=== PATIENT | female | born 1955 | race Caucasian/White ===

== ENCOUNTER 2019-01-21 16:04 | Emergency (ER) | payer BC ==
--- OUTSIDE RECORDS SUMMARY | 2019-01-21 16:31 | XMS REPORT | Continuity of Care Document ---
:1955 External Reference #:[id number] Author Name Shelli Denise Care Team Providers Name Role Phone Von Oliveros MD Primary Care Physician Unavailable Payers Date Identification Numbers Payment Provider Subscriber Policy Number: [id number] [facility] Mariangel Ovalle PayID: [id number] [address] [place] [address] Advance Directives Description No Information Available Problems Description No Information Family History Date Family Member(s) Observation Comments Father MVA Father due to Accidental () Mother Diabetes Mother due to Stroke () Mother Parkinson's Disease Mother Stroke First Daughter No Current Problems Siblings 3 2 UT, 1 cancer First Brother Bladder Cancer , declined treatment Paternal Grandfather Heart Disease Paternal Grandmother Stroke Maternal Grandfather Diabetes Maternal Grandfather MVA Maternal Grandmother Heart Disease Social History Type Date Description Comments Sex Unknown Marital Status Lives With Alone Occupation [employer] Tobacco Use Start: Unknown Never Smoked Cigarettes Smoking Status Reviewed: 01/02/19 Never Smoked Cigarettes ETOH Use Drinks Alcoholic Beverages Rarely Tobacco Use Start: Unknown Patient has never smoked Recreational Drug Use Denies Drug Use Exercise Type/Frequency Exercises sporadically Allergies, Adverse Reactions, Alerts Date Description Reaction Status Severity Comments 10/05/2018 Sulfa Antibiotics Active Medications Medication Date Status Form Strength Qnty SIG Indications Ordering Provider Estradiol 10/05/ Active Tablets 10mcg 24tabs vaginally N95.0 Dvorah 2019 2x/week MD Juaquin Triamterene/Hy / Active Capsules 37.5-25mg 1 by mouth Unknown drochlorothiaz 0000 every day alison One Daily / Active Tablets 1 PO qd Unknown Multivitamin 0000 Women Vitamin D / Active Capsules 2000Unit 1 by mouth Unknown (Ergocalcifero 0000 every day l) [facility] Cod Liver 00// Active Capsules 1 PO qd Unknown Oil 0000 Cinnamon / Active Capsules 500mg 1 tabs by Unknown 0000 mouth every day Hair Skin & / Active Chewtabs 1250-7.5-7 1 by mouth Unknown Nails Gummies 0000 .5mcg-mg-U every day nt Metoprolol / Active Tablets ER 25mg 1/2 by Unknown Succinate ER 0000 24HR mouth every day [place] 3-6-9 00/ Active Capsules 1200mg 1 by mouth Unknown 0000 every day Aspirin 81 Low 00/ Active Chewtabs 81mg 90unit 1 by mouth Qutaybeh Dose 0000 s every day Gloria Aleman M.D. Bupropion HCL 10/05/ Hx Tablets ER 150mg 60tabs one tablet Dvorah ER (Smoking 2019 - 12HR once daily [place], Det) 3 days MD 2018 and then one tablet twice daily Cinnamon / Hx Tablets 500mg 1 PO qd Unknown 0000 - 2018 Glucosamine / Hx Capsules 1500Com 1 by mouth Unknown Chondroitin 0000 - twice a day 1500 Complex 2018 Co Q-10 / Hx Capsules 200mg 1 by mouth Unknown 0000 - every day 2018 Immunizations Description No Information Available Vital Signs Date Vital Result Comment 01/02/2019 1:14pm Height 61 inches 5'1" Weight 194.00 lb with shoes/clothes Heart Rate 80 /min Radial BP Systolic Sitting 152 mmHg Lue reg cuff BP Diastolic Sitting 78 mmHg Lue reg cuff BP Systolic Standing 152 mmHg Lue reg cuff BP Diastolic Standing 78 mmHg Lue reg cuff BMI (Body Mass Index) 36.7 kg/m2 Ejection Fraction REF 55% Stress Echo 12/26/2018 12/07/2018 8:50am Height 61 inches 5'1" Weight 191.00 lb with boots Heart Rate 82 /min BP Systolic Sitting 142 mmHg BP Diastolic Sitting 80 mmHg BP Systolic Standing 144 mmHg BP Diastolic Standing 84 mmHg BMI (Body Mass Index) 36.1 kg/m2 Ejection Fraction 60-65% 12/01/18 11/30/2018 8:31am Height 61 inches 5'1" Heart Rate 86 /min BP Systolic 158 mmHg BP Diastolic 79 mmHg O2 % BldC Oximetry 96 % Last Menstrual Period [id number] 10/05/2018 10:55am Height 61 inches 5'1" Weight 192.50 lb Heart Rate 85 /min BP Systolic 159 mmHg BP Diastolic 77 mmHg O2 % BldC Oximetry 97 % BMI (Body Mass Index) 36.4 kg/m2 Last Menstrual Period [id number] Results Test Date Facility Test Result H/L Range Note Lipid Panel - [facility] 12/20/2018 [facility] Creatine 71 U/L N 10- [address] Kinase(CK) [place] [address] [phone] Comp Metabolic 12/20/2018 [facility] Albumin 4.4 g/dL N 3.2- 5.[address] [place] [address] [phone] Sodium 143 mmol/L N 135-145 Potassium 3.7 mmol/L N 3.5-5.0 Chloride 105 mmol/L N 101-111 Co2 Carbon Dioxide 31 mmol/L N 22-32 Anion Gap 7 mmol/L N 2-11 Calcium 9.0 mg/dL N 8.6-10.3 Total Bilirubin 0.50 mg/dL N 0.2-1.0 Total Protein 6.2 g/dL Low 6.4-8.9 Globulin 1.8 g/dL Low 2-4 Albumin/Globulin Ratio 2.4 N 1-3 Glucose 109 mg/dL High 70-100 Blood Urea Nitrogen 14 mg/dL N 6-24 Creatinine 0.58 mg/dL N 0.51-0.95 BUN/Creatinine Ratio 24.1 High 8-20 Alkaline Phosphatase 78 U/L N 34-104 Alt 26 U/L N 7-52 Ast 18 U/L N 13-39 Egfr Non- 105.0 >60 Egfr 127.0 >60 2 Lipid Profile 12/20/2018 [facility] Triglycerides 164 mg/dL 3 (Trig/Chol/HDL) [address] [place] [address] [phone] Cholesterol 152 mg/dL 4 HDL Cholesterol 35.1 mg/dL 5 LDL Cholesterol 84 mg/dL 6 Laboratory test 11/30/2018 [facility] Gardnerella/Yeast: SEE RESULT [address] [place] [address] [phone] Urine Culture And 10/05/2018 [facility] Urine Culture SEE RESULT [address] [place] [address] [phone] Urinalysis Profile 10/05/2018 [facility] Urine Color Straw [address] [place] [address] [phone] Urine Appearance Clear Urine Specific [address] 1.010 N 1.010-1.030 Urine pH 8.0 N 5-9 Urine Urobilinogen Negative Negative Urine Ketones Negative Negative Urine Protein Negative Negative Urine Leukocytes Trace Abnormal Negative Urine Blood 1+ Abnormal Negative Urine Nitrite Negative Negative Urine Bilirubin Negative Negative Urine Glucose Negative Negative Urine White Blood Cell Trace(0-5/hpf) Absent Urine Red Blood Cell Trace(0-2/hpf) Absent Urine Bacteria Absent Absent Urine Squamous Epithelial Cell Present Abnormal Absent 1 fasting 2 Because ethnic data is not always readily available, this report includes an eGFR for both -Americans and non- Americans. The National Kidney Disease Education Program (NKDEP) does not endorse the use of the MDRD equation for patients that are not between the ages of 18 and 70, are , have extremes of body size, muscle mass, or nutritional status, or are non- or non-. According to the National Kidney Foundation, irrespective of diagnosis, the stage of the disease is based on the level of kidney function: Stage Description GFR(mL/min/1.73 m(2)) 1 Kidney damage with normal or decreased GFR 90 2 Kidney damage with mild decrease in GFR 60-89 3 Moderate decrease in GFR 30-59 4 Severe decrease in GFR 15-29 5 Kidney failure <15 (or dialysis) 3 Desirable: <150 Borderline High: 150-199 High: 200-499 Very High: >500 4 Desirable: <200 Borderline High: 200-239 High: >239 5 Low: <40 Desirable: 40-60 High: >60 6 Desirable: <100 Near Optimal: 100-129 Borderline High: 130-159 High: 160-189 Very High: >189 7 SEE RESULT BELOW Name: MARIANGEL OVALLE : [address]: Terry Reza MD Acct: [id number] Unit: [id number] AGE: 63 Location: [facility] Re11/30/18 SEX: F Status: REG REF SPEC: [id number] MARISSA: 11/30/[address] [facility] [address]: Terry Reza MD REQ: [id number] RECD: 11/30/18 STATUS: COMP _ SOURCE: VAGINAL SPDESC: ORDERED: Vidya,Yeast DNA COMMENTS: [id number] Would you like to order Trichomonas Vaginalis testing? No Procedure Result Reported Site Gardnerella/Yeast: Vaginal DNA Final 12/01/18- 1249 ML Organism 1 Negative Aruna Organism 2 Negative Gardnerella The presence of G. vaginalis, although suggestive, is not diagnostic for bacterial vaginosis. Results should be interpreted in conjuction with other clinical and laboratory data available. Women with vaginal discharge should be evaluated for risk factors of cervicitis and pelvic inflammatory disease, toxic shock syndrome (S.aureus), and if present, evaluated for organisms not included in this assay such as N. gonorrhoeae, C. trachomatis, Mobiluncus, Mycoplasma and/or Prevotella. Mixed infections may occur. The performance of this test on patient specimens collected during or immediately after antimicrobial therapy is unknown. The presence or absence of Aruna species, or G. vaginalis cannot be used as a test for therapeutic success or failure. * ML - Main Lab . END OF REPORT DEPARTMENT OF PATHOLOGY, [address] [place] [address] Jairo Russ M.D. Director [facility] # [id number] SEE RESULT BELOW Name: MARIANGEL OVALLE : [address]: Terry Reza MD Acct: [id number] Unit: [id number] AGE: 63 Location: [facility] Re10/05/18 SEX: F Status: REG REF SPEC: [id number] MARISSA: 10/05/18-[address]: Terry Reza MD REQ: [id number] RECD: 10/05/18 STATUS: COMP _ [facility] ORDERED: Urine Culture COMMENTS: [id number] Urine Source: Random Procedure Result Reported Site Urine Culture Final 10/06/18- 1235 ML No growth of clinically significant organisms * ML - Main Lab . END OF REPORT DEPARTMENT OF PATHOLOGY, [address] [place] [address] Jairo Russ M.D. Director [facility] # [id number] Procedures Date Code Description Status 12/29/2018 97180 Holter Monitor Review (24 hr)dr review & interp only Completed 12/28/2018 68706 ECG Monitor/Recording W/Visual Superimposition Scanning Completed 12/26/2018 34371 ECHO Stress Test Incl Perf Contiuous ekg Monitoring Completed W/Phys Superv 12/07/2018 75534 EKG Tracing & Interpretation Completed 12/01/2018 53673 ECHO Transthorasic Realtime 2D W Doppler & Color Flow Completed Hosp 10/11/2018 [id number] Mammogram Completed 10/16/2015 [id number] Mammogram Completed Encounters Type Date Location Provider Dx Diagnosis Office Visit 12/07/2018 [facility] Qutaybeh S. R07.9 Chest pain, 9:00a Austin Aleman unspecified R06.02 Shortness of breath R00.2 Palpitations I10 Essential (primary) hypertension E78.5 Hyperlipidemia, unspecified E66.9 Obesity, unspecified Z82.49 Family hx of ischem heart dis and oth dis of the circ sys Office Visit 12/02/2018 11:01a [facility] R07.9 Chest pain, Assoc,cassi Denny NP unspecified Hospitalists I10 Essential (primary) hypertension Office Visit 12/01/2018 1:18p [facility] Qutaybeh S. R07.89 Other chest Austin Aleman pain R79.89 Other specified abnormal findings of blood chemistry I10 Essential (primary) hypertension E78.5 Hyperlipidemia, unspecified R94.31 Abnormal electrocardiogram [ECG] [EKG] Z82.49 Family hx of ischem heart dis and oth dis of the [facility] E66.9 Obesity, unspecified [facility]9 Chest pain, 11:01a Assoccassi M.D. unspecified Hospitalists I10 Essential (primary) hypertension Office Visit 11/30/2018 8:30a [facility] Terry Reza, N95.0 [facility] bleeding N95.2 Postmenopausal atrophic vaginitis Z90.710 Acquired absence of both cervix and uterus Office Visit 10/05/2018 11:00a [facility] Terry Reza N95.0 [facility] bleeding R39.15 Urgency of urination Z80.52 Family history of malignant neoplasm of bladder Plan of Treatment Future Appointment(s):10/11/2019 1:00 pm - Terry Reza MD at [facility]01/02/2019 - Jose A Aleman M.D.I49.1 Atrial premature depolarizationFollow up:one yr ovR07.9 Chest pain, [id number] Essential ( primary) kfivfzbuugsbZ44.9 Obesity, unspecified
--- NOTE | 2019-01-21 16:49 | UC ---
Skin Complaint HPI - HPI Summary HPI Summary: 63 yo female presents with right sided scalp tenderness/burning since yesterday. She tells me that she had shingles a few years ago on her right neck and this sensation on her scalp feels similar. Has not noticed any rashes, lesions, or bumps. Has been feeling well otherwise and denies headache, dizziness, or recent illness. - History of Current Complaint Chief Complaint: UCSkin Time Seen by Provider: 01/21/19 16:28 Stated Complaint: RASH Hx Obtained From: Patient Onset/Duration: Sudden Onset Onset Severity: Mild Current Severity: Mild Pain Intensity: 3 Pain Scale Used: 0-10 Numeric - Allergy/Home Medications Allergies/Adverse Reactions: Allergies Allergy/AdvReac Type Severity Reaction Status Date / Time latex Allergy Rash Verified 01/21/19 16:36 sulfamethoxazole Allergy Hives Verified 01/21/19 16:36 [From Bactrim] trimethoprim [From Bactrim] Allergy Hives Verified 01/21/19 16:36 PMH/Surg Hx/FS Hx/Imm Hx Cardiovascular History: Hypertension - Surgical History Surgical History: Yes Surgery Procedure, Year, and Place: 3 c-sections ;, [facility]. right side carpal tunnel, [facility]. tubal ligation, [facility]. 2 D & C's, [facility], MOST RECENT ONE 2012 - Family History Known Family History: Positive: Cardiac Disease, Hypertension Negative: Diabetes - Social History Lives: With Family Alcohol Use: None Alcohol Amount: 1 GLASS WINE Substance Use Type: None Smoking Status (MU): Never Smoked Tobacco Review of Systems All Other Systems Reviewed And Are Negative: Yes Constitutional: Positive: Negative Skin: Positive: Other - Scalp tenderness Eyes: Positive: Negative ENT: Positive: Negative Respiratory: Positive: Negative Cardiovascular: Positive: Negative Neurological: Positive: Negative Psychological: Positive: Negative Physical Exam - Summary Physical Exam Summary: GENERAL: NAD. WDWN. No pain distress. SKIN: TTP on right frontal and parietal scalp. No erythema, lesions, or wounds. NECK: Supple. Nontender. No lymphadenopathy. CHEST: No accessory muscle use. Breathing comfortably and in no distress. CV: Pulses intact. Cap refill <2seconds NEURO: Alert. PSYCH: Age appropriate behavior. Triage Information Reviewed: Yes Vital Signs: Initial Vital Signs Temp 98.1 F 01/21/19 16:29 Pulse 99 01/21/19 16:29 Resp 16 01/21/19 16:29 Pulse Ox 97 01/21/19 16:29 Vital Signs Reviewed: Yes Course/Dx - Course Course Of Treatment: Given that she has had shingles in the past and this feels similar and could be consistent with a prodrome, will start her with valacyclovir and have her monitor her symptoms - be rechecked if symptoms change or worsen - Diagnoses Provider Diagnosis: Scalp tenderness Discharge - Sign-Out/Discharge Documenting (check all that apply): Patient Departure All imaging exams completed and their final reports reviewed: No Studies - Discharge Plan Condition: Stable Disposition: HOME Prescriptions: Valacyclovir HCl [Valacyclovir] 1,000 mg PO TID #21 tab Patient Education Materials: Shingles (ED) Referrals: Von Oliveros MD [Primary Care Provider] - Additional Instructions: If you develop a fever, shortness of breath, chest pain, new or worsening symptoms - please call your PCP or go to the ED. - Billing Disposition and Condition Condition: STABLE Disposition: Home
== END 2019-01-21 16:55 | disposition home or self-care (01) ==
LOC: UCEAST 16:04
DX: L98.9 Disorder of the skin and subcutaneous tissue, unspecified (principal); I10 Essential (primary) hypertension; Z88.2 Allergy status to sulfonamides; Z91.040 Latex allergy status
CPT/HCPCS: 99212; G0463

== ENCOUNTER 2019-07-24 09:38 | Day surgery (SDC) | payer BC ==
--- NOTE | 2019-07-18 11:09 | HP ---
AMENDED REPORT NOW INCLUDES DESIGNATED COSIGNER PREOPERATIVE HISTORY AND PHYSICAL: DATE OF SURGERY/ADMISSION: 07/24/19 DATE OF OFFICE VISIT/ENCOUNTER: 07/11/19 ATTENDING SURGEON: Zulema Martins MD * (DICTATED BY MADIE MUNOZ) PROCEDURE: Excision mass, left thumb. LINUX SYSTEMS ENGINEER: Dr. Aleman. HISTORY OF PRESENT ILLNESS: This is a 63-year-old female who complains of a large lump on the dorsal aspect of her left thumb. It has been present over a year and has gradually gotten bigger. It is not especially painful unless she hits it on something. She has never had any drainage from the mass. There was no specific injury. It has become bothersome enough that she would like to have it removed. The patient has had a history of atypical chest pain and we will plan on getting clearance from her network firewall engineer, Dr. Aleman, prior to proceeding with surgery. PAST MEDICAL HISTORY: 1. Hypertension. 2. History of DVT, distant history. 3. Lymphedema. 4. History of atrial premature depolarization. 5. History of atypical chest pain. PAST SURGICAL HISTORY: 1. Bilateral cataract removal. 2. Hysterectomy. 3. D and C x3. 4. Right carpal tunnel release. 5. x3. MEDICATIONS: 1. Essential omega-3 fatty acid 1 capsule daily. 2. CBD oil half drop or twice daily. 3. [facility] Cod Liver Oil 1 daily. 4. Cinnamon 500 mg 1 tab daily. 5. Estradiol 10 mcg vaginally 2 times a week. 6. Hair, Skin, Nails Biotin 1 capsule daily. 7. Metoprolol succinate ER 25 mg half a tab daily. 8. [place] 3-6-9 1200 mg 1 tab daily. 9. Multivitamin daily. 10. Triamterene/hydrochlorothiazide 37.5/25 mg daily. 11. Vitamin D 2000 units daily. ALLERGIES: SULFA ANTIBIOTICS cause hives. FAMILY MEDICAL HISTORY: Coronary artery disease, diabetes, Parkinson's, stroke. SOCIAL HISTORY: The patient is retired. 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 She denies tobacco use and recreational drug use. She drinks alcohol on rare occasion. REVIEW OF SYSTEMS: Negative for general, cephalic, cardiovascular, respiratory , GI, , other musculoskeletal, integumentary, endocrine, neurologic, and hematologic symptoms. Infectious Disease: Negative for MRSA, hepatitis C, HIV. PHYSICAL EXAMINATION GENERAL: Well-developed, well-nourished 63-year-old female, in no acute distress. VITAL SIGNS: Height 5 feet and one-half inch, weight 202 pounds, pulse rate 76 , blood pressure 126/64. HEENT: Normocephalic and atraumatic. Pupils are equal, round, and reactive to light and accommodation. Extraocular movements are intact. Throat is clear. NECK: Supple. No palpable lymph nodes. PULMONARY: Lungs are clear to auscultation bilaterally. No wheezes, rales, or rhonchi. CARDIOVASCULAR: Regular rate and rhythm. S1 and S2. No murmurs, rubs, or gallops. Edema is present in right leg secondary to lymphedema. ABDOMEN: Positive bowel sounds. Soft and nontender. MUSCULOSKELETAL: On exam of her left thumb, there is a large ganglion at the IP joint. There are no changes in the finger nail. She can flex and extend the thumb actively. There is minimal tenderness to palpation. Skin is intact. Neurovascular function is intact. NEUROLOGIC: Alert and oriented x3. Cranial nerves II through XII are intact. Sensation is intact to light touch. 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 IMPRESSION: Left thumb ganglion cyst/mucous cyst. PLAN/RECOMMENDATIONS: The patient is scheduled to undergo an excision mass, left thumb, with Dr. Martins on 07/24/19. She will return to the office 10 days postop for followup and suture removal. A prescription for tramadol was e-scribed to the patient's pharmacy for postoperative pain management. We will receive clearance from her network firewall engineer, Dr. Aleman, prior to proceeding with surgery. MADIE MUNOZ [id number]/[facility] #: [id number] MTDJacy
[~2019-07-24 09:38] MED LIST: Buffered Lidocaine 1% SYRIN* 1 ML/SYRINGE INTRADERM ONE; Dexamethasone TAB* 4 MG ONE; Dexamethasone TAB* 4 MG PO ONE; DiMENhydriNATE IV* 50 MG/ML VIAL IV PUSH PRN; Famotidine IV* 10 MG/ML 2 ML (20 mg) IV ONE; Famotidine IV* 10 MG/ML 2 ML (20 mg) ONE; Lactated Ringers 1000 ML Bag* 1,000 ML IV SCH; Naloxone* 0.4 MG/ML 1 ML VIAL IV PRN; Ondansetron ODT TAB* 4 MG ONE; Ondansetron ODT TAB* 4 MG PO ONE; PROCHLORPERAZINE INJ 5 MG/ML 2 ML VIAL IV PRN; fentaNYL* 50 MCG/ML 2 ML VIAL (100 MCG VIAL) IV PRN; oxyCODONE/Acetamin 5/325 MG* TAB PO PRN
[2019-07-24] MEDS ORDERED: fentaNYL* 50 MCG/ML 2 ML VIAL (100 MCG VIAL) ONE (10:41)
[2019-07-24] MEDS ORDERED: Midazolam* 1 MG/ML 5 ML VIAL (5 MG) ONE (10:41)
[2019-07-24] MEDS ORDERED: KETAMINE HCL* 50 MG/ML 10 ML VIAL ONE (10:41)
[2019-07-24] MEDS ORDERED: Lidocaine 1% INJ* 10 MG/ML 30 ML SDV ONE (10:45)
[2019-07-24] MEDS ORDERED: Propofol* 10 MG/ML 20 ML BTL ONE (11:25)
[2019-07-24] MEDS ORDERED: Lidocaine 2% PF * 5 ML VIAL ONE (11:25)
[2019-07-24] MEDS ORDERED: Ketorolac INJ* 30 MG/ML 1 ML VIAL ONE (11:25)
[2019-07-24 14:22] VITALS: BP 131/63
--- NOTE | 2019-07-24 14:38 | OP ---
DATE OF OPERATION: 07/24/[address] [facility] DATE OF : 55 SURGEON: Zulema Martins MD COMMERCIAL FINANCE ANALYST: MADIE Watkins. ANESTHESIA: Local MAC. PRE-OP DIAGNOSIS: Left thumb mass. POST-OP DIAGNOSIS: Left thumb mass. OPERATIVE PROCEDURE: Removal of left thumb mass. INDICATIONS FOR PROCEDURE: Rufina is a 63-year-old female who has a painful mass on the dorsal aspect of her left thumb at the IP joint. She presents for removal. ESTIMATED BLOOD LOSS: Zero. TOURNIQUET TIME: About 15 minutes. DESCRIPTION OF PROCEDURE: The patient was brought to the operating room, was given a sedation anesthetic and a digital block with 10 cc of 1% plain lidocaine. The skin of her left hand and forearm was prepped and draped in usual sterile fashion. The thumb was exsanguinated with the Tourni-Cot which was left in place during the procedure. An H-shaped incision was made centered over the dorsal aspect of the IP joint and we carefully dissected the skin flap off of the ganglion cyst and the cyst off of the extensor tendon. It was removed in its entirety, and then either side of the extensor tendon was incised and the underlying osteophytes were removed with a rongeur. These were sent for pathology as well. The wound was irrigated and the skin edges were reapproximated with 4-0 nylon suture. The wound was dressed with Xeroform, 4x4 , Webril, and Coban. The patient tolerated the procedure well and was brought to the recovery room in good condition. [id number]/[facility] #: [id number] MTDJacy
== END 2019-07-24 12:19 | disposition home or self-care (01) ==
LOC: OREAST 09:38
PROVIDERS: ATTEND Orthopaedic Surgery
DX: M67.442 Ganglion, left hand (principal); I10 Essential (primary) hypertension; Z86.718 Personal history of other venous thrombosis and embolism; I89.0 Lymphedema, not elsewhere classified
CPT/HCPCS: 88304; A9270-GY; J1885; J2250; J2704; J3010; J8540

== ENCOUNTER 2019-11-18 09:09 | Emergency (ER) | payer BC ==
--- OUTSIDE RECORDS SUMMARY | 2019-11-18 10:11 | XMS REPORT | Continuity of Care Document ---
:1955 External Reference #:[id number] Author Name Terry Reza MD (transmitted by agent of provider Sole Collins) Address [address] [place] [id number] Care Team Providers Name Role Phone Von Oliveros MD - Internal Medicine Care Team Information Civil Litigation Attorney Problems Description No Information Available Social History Type Date Description Comments Sex Unknown Tobacco Use Start: Unknown Never Smoked Cigarettes Smoking Status Reviewed: 10/11/19 Never Smoked Cigarettes ETOH Use Drinks Alcoholic Beverages Rarely Tobacco Use Start: Unknown Patient has never smoked Recreational Drug Use Denies Drug Use Exercise Type/Frequency Exercises sporadically Allergies, Adverse Reactions, Alerts Active Allergies Reaction Severity Comments Date Sulfa Antibiotics 10/05/2018 Medications Active Medications SIG Qnty Indications Ordering Date Provider Estradiol vaginally 2x/week 24tabs N95.0 Terry Reza, 10/05/2018 10mcg Tablets Triamterene/Hydrochlo 1 by mouth every Unknown rothiazide day 37.5-25mg Capsules One Daily 1 PO qd Unknown Multivitamin Women Tablets Vitamin D 1 by mouth every Unknown (Ergocalciferol) day 2000Unit Capsules [facility] Cod Liver Oil 1 PO qd Unknown Capsules Cinnamon 1 tabs by mouth Unknown 500mg Capsules every day Metoprolol Succinate 1/2 by mouth every 45tabs Qutaybeh S. ER day [place] Aleman 25mg Tablets ER 24HR [place] 3-6-9 1 by mouth every Unknown 1200mg day Capsules CBD Oil 1/2 dropper twice Unknown daily Hair/Skin/Nails/Bioti take one Unknown n capsule/tablet Tablets daily by mouth Algal Dha 250 1 capsule by mouth Unknown Essential [place] 3 daily Fatty Acid History Medications Tramadol HCL 1 tab by mouth 15tabs Zulema Martins, 07/18/2019 - 50mg every 4-6 hours as M.D. 09/11/2019 Tablets needed pain For use after surgery Immunizations Description No Information Available Vital Signs Date Vital Result Comment 10/11/2019 1:05pm Height 60.5 inches 5'0.50" Weight 200.00 lb Heart Rate 96 /min BP Systolic 126 mmHg BP Diastolic 84 mmHg O2 % BldC Oximetry 94 % BMI (Body Mass Index) 38.4 kg/m2 09/12/2019 10:33am Height 60.5 inches 5'0.50" Weight 200.00 lb Heart Rate 89 /min Respiratory Rate 16 /min Body Temperature 97.5 F Pain Level 0 BMI (Body Mass Index) 38.4 kg/m2 Results Test Acquired Date Facility Test Result H/L Range Note Surgical 07/24/2019 [facility] Surgical SEE RESULT 1, [address] Pathology BELOW [place] [id number] [phone] PDFReport [id number] <SEE NOTE> 1 [id number] 2 SEE RESULT BELOW Name: MARIANGEL OVALLE : [address]: Zulema Martins MD Acct: [id number] Unit: [id number] AGE: 63 Location: [facility] Re07/24/19 SEX: F Status: VERONICA ROOT SPEC: [id number] MARISSA: 07/24/191126 SUBM DR: Zulema Martins MD REQ: [id number] RECD: 07/24/19198 STATUS: SOUT _ ORDERED: LEVEL 3 COMMENTS: [id number] FINAL DIAGNOSIS Soft tissue, bone and cartilage, excision: -- Ganglion cyst. -- Fragments of bone and cartilage with degenerative and reactive features. PRE-OPERATIVE DIAGNOSIS Mass left thumb GROSS DESCRIPTION The specimen is received in formalin labeled, Left Thumb Ganglion, and consists of a 1.5 x 1.2 x 0.3 cm aggregate of herrera-white to pink irregular rubbery focally cystic fibrous tissue fragments admixed with scant fat. Entirely submitted, one cassette. Signed by and Reported on: Jairo Russ MD 1415 END OF REPORT DEPARTMENT OF PATHOLOGY, [address] [place] [address] Jairo Russ M.D. 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 11:00a [facility] AT [place] [facility] I10 Essential (primary) hypertension E78.5 Hyperlipidemia, unspecified Z01.810 Encounter for preprocedural cardiovascular examination R94.31 Abnormal electrocardiogram [ECG] [EKG] M67.442 Ganglion, left hand Office Visit 06/14/2019 9:30a Ayaz Poole M67.442 Ganglion, left Orthopedics at [place] [facility] Date Code Description Provider 10/11/2019 Z01.419 Encounter for gynecological Terry Reza MD examination (general) (routine) without abnormal findings 10/11/2019 Z80.0 Family history of malignant neoplasm Terry Reza MD of digestive organs 10/11/2019 Z12.31 Encounter for screening mammogram for Terry Reza MD malignant neoplasm of breast 09/12/2019 [id number] Meryl, left hand Zulema Martins M.D. 09/12/2019 Z47.89 Encounter for other orthopedic Zulema Martins M.D. aftercare 08/02/2019 Harish Sheth, left hand Zulema Martins M.D. 08/02/2019 Z47.89 Encounter for other orthopedic Zulema Martins M.D. aftercare 08/02/2019 Z48.02 Encounter for removal of sutures Zulema Martins M.D. 07/24/2019 Enrique44Isatu Sheth, left hand Rubina Sahu, AMANDEEP-C 07/24/2019 Harish Sheth left hand Zulema Martins M.D. 07/11/2019 Harish Sheth, left hand Rubina Sahu, AMANDEEP-C 07/11/2019 Harish Sheth, left hand Zulema Martins M.D. 06/22/2019 I49.1 Atrial premature depolarization Jose A Aleman M.D. 06/22/2019 I10 Essential (primary) hypertension Jose A Aleman M.D. 06/22/2019 E78.5 Hyperlipidemia, unspecified Jose A Aleman M.D. 06/22/2019 Z01.810 Encounter for preprocedural Jose A Aleman M.D. cardiovascular examination 06/22/2019 R94.31 Abnormal electrocardiogram [ECG] [EKG] Jose A Aleman M.D. 06/22/2019 M67.442 Ganglion, left hand Jose A Aleman M.D. 06/14/2019 M67.442 Ganglion, left hand Zulema Martins M.D. Plan of Treatment 10/11/2019 - Terry Reza MDZ01.419 Encounter for gynecological examination ( general) (routine) without abnormal findingsComments:Reordered Estradiol 10mcg 2x[facility] TargetFollow up:Please sign another records release for so we can request Operative Note from NurpfppolsseK35.0 Family history of malignant neoplasm of digestive organsReferral:Taz Deleon MD, QvngkobbcdmaiaavD30.31 Encounter for screening mammogram for malignant neoplasm of breast Functional Status Description No Information Available Mental Status Description No Information Available Referrals Refer to Reason for Referral Status Appt Date Taz Deleon MD Family Hx colon cancer (brother). Colonoscopy Created 5 yrs ago at [place], [facility]. [address] [place] [address] [phone]
[2019-11-18 10:22] VITALS: BP 142/61
--- NOTE | 2019-11-18 10:25 | UC ---
Respiratory Complaint HPI - HPI Summary HPI Summary: 64 yo with one week history of cough with production, with increasing sore throat and ear pain. - History of Current Complaint Chief Complaint: UCRespiratory Stated Complaint: COUGH EAR PAIN Time Seen by Provider: 11/18/19 10:23 Hx Obtained From: Patient Onset/Duration: Gradual Onset, Lasting Days Timing: Intermittent Episodes Severity Initially: Mild Severity Currently: Moderate Pain Intensity: 1 Aggravating Factors: Exertion, Recumbent Position Alleviating Factors: OTC Meds, Upright Position Associated Signs And Symptoms: Positive: Wheezing, URI, Nasal Congestion, Sinus Discomfort. Negative: Dyspnea - Risk Factors Pulmonary Embolism Risk Factors: Negative Cardiac Risk Factors: Hypertension Pseudomonas Risk Factors: Negative Tuberculosis Risk Factors: Negative - Allergies/Home Medications Allergies/Adverse Reactions: Allergies Allergy/AdvReac Type Severity Reaction Status Date / Time latex Allergy Rash Verified 11/18/19 10:16 sulfamethoxazole Allergy Hives Verified 11/18/19 10:16 [From Bactrim] trimethoprim [From Bactrim] Allergy Hives Verified 11/18/19 10:16 PMH/Surg Hx/FS Hx/Imm Hx Cardiovascular History: Hypertension, Other - states has had normal stress test ; she is uncertain why she has rx for nitroglycerine. - Surgical History Surgical History: Yes Surgery Procedure, Year, and Place: 3 c-sections ;, [facility]. [place] [facility] [facility] [place]'s[place] [facility] [place] MOST RECENT [place]. TOTAL HYSTERECTOMY-2016. BILATERAL EYE CATARACTS SURGERY-2016 - Family History Known Family History: Positive: Cardiac Disease, Hypertension Negative: Diabetes - Social History Occupation: Retired Lives: Alone Alcohol Use: Rare Alcohol Amount: 1 GLASS WINE Substance Use Type: None Smoking Status (MU): Never Smoked Tobacco Have You Smoked in the Last Year: No Review of Systems All Other Systems Reviewed And Are Negative: Yes Constitutional: Positive: Fatigue Skin: Positive: Negative Eyes: Positive: Negative ENT: Positive: Sore Throat, Ear Ache, Nasal Discharge Respiratory: Positive: Cough. Negative: Shortness Of Breath Cardiovascular: Negative: Palpitations, Chest Pain Gastrointestinal: Positive: Negative Genitourinary: Positive: Negative Motor: Positive: Negative Neurovascular: Positive: Negative Musculoskeletal: Positive: Negative Neurological/Mental Status: Positive: Negative Psychological: Positive: Negative Is Patient Immunocompromised?: No Physical Exam Triage Information Reviewed: Yes Appearance: Well-Appearing, No Pain Distress Vital Signs: Initial Vital Signs Temp 97.6 F 11/18/19 10:14 Pulse 86 11/18/19 10:14 Resp 16 11/18/19 10:14 BP 142/61 11/18/19 10:14 Pulse Ox 98 11/18/19 10:14 Vital Signs Reviewed: No Eyes: Positive: Conjunctiva Clear ENT: Positive: Pharyngeal erythema, TM dull. Negative: TM red Neck: Positive: Supple, Nontender, No Lymphadenopathy Respiratory: Positive: Lungs clear, Normal breath sounds, No respiratory distress Cardiovascular: Positive: RRR, No Murmur Abdominal Exam: Normal Musculoskeletal Exam: Normal Neurological Exam: Normal Psychological Exam: Normal Skin Exam: Normal Respiratory Course/Dx - Course Course Of Treatment: amoxicillin for treatment of sinusitis, tessalon perles. - Differential Dx/Diagnosis Differential Diagnosis/HQI/PQRI: Bronchitis, Laryngitis, Lower Resp Infection, Sinusitis Provider Diagnosis: Sinusitis Discharge ED - Sign-Out/Discharge Documenting (check all that apply): Patient Departure All imaging exams completed and their final reports reviewed: No Studies - Discharge Plan Condition: Stable Disposition: HOME Prescriptions: Amoxicillin PO (*) [Amoxicillin 875 MG (*)] 875 mg PO BID #20 tab Benzonatate 200 mg PO TID PRN #30 capsule PRN Reason: Cough Patient Education Materials: Sinusitis (ED) Referrals: Von Oliveros MD [Primary Care Provider] - Additional Instructions: Take amoxicillin for treatment of sinus infection, and use tessalon perles to quiet the cough. Follow up if you have increasing shortness of breath or fever. - Billing Disposition and Condition Condition: STABLE Disposition: Home
== END 2019-11-18 10:47 | disposition home or self-care (01) ==
LOC: UCCORT 09:09
DX: J32.9 Chronic sinusitis, unspecified (principal); I10 Essential (primary) hypertension; H92.09 Otalgia, unspecified ear; J39.2 Other diseases of pharynx; Z91.040 Latex allergy status; Z88.2 Allergy status to sulfonamides
CPT/HCPCS: 99212; G0463

== ENCOUNTER 2022-01-19 07:00 | Observation (INO) ==
[~2022-01-19 07:00] MED LIST changes: +Buffered Lidocaine 1% SYRIN 1 ml INTRADERM ONE; -Buffered Lidocaine 1% SYRIN* 1 ML/SYRINGE INTRADERM ONE; -Dexamethasone TAB* 4 MG ONE; -Dexamethasone TAB* 4 MG PO ONE; -DiMENhydriNATE IV* 50 MG/ML VIAL IV PUSH PRN; -Famotidine IV* 10 MG/ML 2 ML (20 mg) IV ONE; -Famotidine IV* 10 MG/ML 2 ML (20 mg) ONE; -Lactated Ringers 1000 ML Bag* 1,000 ML IV SCH; +Lactated Ringers 1000 ml BAG 1,000 ML IV SCH; -Naloxone* 0.4 MG/ML 1 ML VIAL IV PRN; -Ondansetron ODT TAB* 4 MG ONE; -Ondansetron ODT TAB* 4 MG PO ONE; -PROCHLORPERAZINE INJ 5 MG/ML 2 ML VIAL IV PRN; -fentaNYL* 50 MCG/ML 2 ML VIAL (100 MCG VIAL) IV PRN; -oxyCODONE/Acetamin 5/325 MG* TAB PO PRN
[2022-01-19] MEDS ORDERED: ceFAZolin 2 GM in NS PREMIX 2 GM/100 ML BAG IVPB ONE (07:51)
[2022-01-19] MEDS ORDERED: Propofol 10 MG/ML 20 ML BTL ONE ×3 (08:03→18:32)
[2022-01-19] MEDS ORDERED: Lidocaine 2% PF 5 ML VIAL ONE (08:03)
[2022-01-19] MEDS ORDERED: Ketamine HCL 50 mg/ml 10 ml VIAL (500 MG) ONE (08:03)
[2022-01-19] MEDS ORDERED: Midazolam 2 mg/2 ml VIAL 1 mg/ml 2 ml VIAL (2 mg) ONE ×3 (08:09→09:11)
[2022-01-19] MEDS ORDERED: ROPIVACAINE 5 MG/ML 30 ML BTL (0.5%) ONE (08:24)
[2022-01-19] MEDS ORDERED: Lidocaine 1% MPF 5 ML VIAL ONE (08:24)
[2022-01-19] MEDS ORDERED: Rocuronium 50 mg VIAL 10 mg/ml 5 ml VIAL (50 mg) ONE (09:35)
[2022-01-19] MEDS ORDERED: fentaNYL 250 mcg/5 ml 50 MCG/ML 5 ml VIAL (250 MCG) ONE (09:36)
[2022-01-19] MEDS ORDERED: EPHEDrine (Pressors) 50 MG/ML VIAL ONE (10:03)
[2022-01-19] MEDS ORDERED: Glycopyrrolate IV 0.2 MG/ML 1 ML VIAL ONE (10:03)
[2022-01-19] MEDS ORDERED: Acetaminophen IV 1 GM/100ML 100 ML IV ONE (10:06)
[2022-01-19] MEDS ORDERED: Ondansetron 4 mg VIAL 2 MG/ML 2 ml VIAL IV PRN ×2 (11:00→12:42)
[2022-01-19] MEDS ORDERED: Morphine 2 MG/ML SYRINGE IV PRN (11:00)
[2022-01-19] MEDS ORDERED: diPHENhydraMINE IV 50 MG/ML 1 ml VIAL (BENADRYL) IV PRN (11:00)
[2022-01-19] MEDS ORDERED: Magnesium Hydroxide LIQ 30 ML UDC PO PRN (11:00)
[2022-01-19] MEDS ORDERED: Lactated Ringers 1000 ml BAG 1,000 ML IV SCH (11:00)
[2022-01-19] MEDS ORDERED: Ondansetron ODT 4 mg TAB 4 MG TAB PO PRN (11:00)
[2022-01-19] MEDS ORDERED: Lactulose 30 ml UDC PO PRN (11:00)
[2022-01-19] MEDS ORDERED: diPHENhydraMINE 25 mg TAB PO PRN (11:00)
[2022-01-19] MEDS ORDERED: ceFAZolin 1 GM ADVAN 1 GM in NS 0.9% 50 ML 50 ML IVPB SCH (11:00)
[2022-01-19] MEDS ORDERED: Fluticasone NASAL SPRAY 50MCG 16 gm SPRAY BTL INTRANASAL PRN (11:07)
[2022-01-19] MEDS ORDERED: fentaNYL 100 mcg/2 ml 50 MCG/ML VIAL IV PRN (12:42)
[2022-01-19] MEDS ORDERED: Naloxone 0.4 mg VIAL 0.4 mg/ml 1 ml VIAL IV PRN (12:42)
[2022-01-19] MEDS ORDERED: DiMENhydriNATE IV 50 mg/ml 1 ml VIAL IV PUSH PRN (12:42)
[2022-01-19] MEDS ORDERED: Acetaminophen IV 1 GM/100ML 100 ML IV PRN (12:42)
[2022-01-19] MEDS ORDERED: HYDROmorphone 1 MG/1 ML SYRINGE ONE (12:52)
[2022-01-19] MEDS: HYDROmorphone 1 MG/1 ML SYRINGE IV PRN ×2 (12:55→13:08)
[2022-01-19] MEDS ORDERED: Dextrose 50% Syringe 50 ml 25 GM/50 ML SYRINGE IV PUSH PRN (14:25)
[2022-01-19] MEDS: ceFAZolin VIAL 1 GM in NS 0.9% 50 ML 50 ML IVPB SCH (18:51)
[2022-01-19] MEDS: Magnesium Hydroxide LIQ 30 ML UDC PO SCH (21:17)
[2022-01-20] MEDS: ceFAZolin VIAL 1 GM in NS 0.9% 50 ML 50 ML IVPB SCH ×2 (03:07→10:10)
[2022-01-20 07:30] LABS: Hematocrit 33 % (35-47); Hemoglobin 10.8 g/dL (12.0-16.0); Mean Platelet Volume 8.9 fL (7.4-10.4); Platelet Count 184 10^3/uL (150-450)
[2022-01-20 07:45] LABS: Blood Urea Nitrogen 9 mg/dL (6-24); CO2 Carbon Dioxide 26 mmol/L (22-32); Calcium 8.5 mg/dL (8.6-10.3); Chloride 104 mmol/L (101-111); Glucose 91 mg/dL (70-100); Sodium 138 mmol/L (135-145); eGFR CKD-EPI 99.7 (>60)
[2022-01-20 07:57] LABS: Anion Gap 8 mmol/L (2-11)
[2022-01-20] MEDS: Magnesium Hydroxide LIQ 30 ML UDC PO SCH (08:26)
[2022-01-20] MEDS ORDERED: Vitamin THERAPEUTIC TAB PO SCH (09:00)
[2022-01-20 11:15] VITALS: BP 140/55
== END 2022-01-20 13:05 | disposition home or self-care (01) ==
LOC: OR 07:00 → SSU 07:00
PROVIDERS: ADMIT Orthopaedic Surgery Adult Reconstructive Orthopaedic Surgery; ATTEND Orthopaedic Surgery Adult Reconstructive Orthopaedic Surgery